=== PATIENT | male | born 1990 ===

== ENCOUNTER → 2021-02-09 | Outpatient (REF) | payer OTHER ==
[2021-02-09 09:01] LABS: SEMEN APPEARANCE OPAQUE (OPAQUE); SEMEN VISCOSITY LIQUID (LIQUID); WBC CONCENTRATION <=1 M/ml (<=1 M/ml)
[2021-02-09 09:02] LABS: SPERM CONCENTRATION 91.7 M/ml (>=15.0)
== END ==
LOC: M LAB REF 08:51
PROVIDERS: ATTEND Nurse Practitioner
DX: N46.9 Male infertility, unspecified (principal)